=== PATIENT | male | born 1995 | race Caucasian/White ===

== ENCOUNTER 2016-12-11 13:57 | Emergency (ER) | payer OTHER ==
[~2016-12-11] VITALS: Ht 182.9 cm; Wt 67.0 kg
[2016-12-11 13:59] VITALS: BP 127/87; PULSE 90; RESP 18; TEMP 97.9; O2SAT 99
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
[2016-12-11 18:16] LABS: BLOOD, URINE NEG (NEG); COMMENT (UR) CULT NOT INDICATED; CULTURE IF INDICATED CULT NOT INDICATED; GLUCOSE,URINE NEG (NEG); KETONE, URINE NEG (NEG); NITRITE,URINE NEG (NEG); PH, URINE 6.5 (5.0-8.5); URINE COLOR LIGHT-YELLOW (YELLW/STRAW)
== END 2016-12-11 19:13 | disposition home or self-care (01) ==
LOC: NEPC 13:57
DX: S09.90XA Unspecified injury of head, initial encounter (principal); S30.21XA Contusion of penis, initial encounter; H53.8 Other visual disturbances; R11.0 Nausea; V23.4XXA Motorcycle driver injured in collision with car, pick-up truck or van in traffic accident, initial encounter; Y93.I9 Activity, other involving external motion; Y92.410 Unspecified street and highway as the place of occurrence of the external cause
CPT/HCPCS: 70450; 81001